=== PATIENT | female | born 1985 | race Caucasian/White ===

== ENCOUNTER → 2020-11-22 | Day surgery (SDC) | payer OTHER ==
[~2020-11-22] VITALS: Ht 160 cm; Wt 56.7 kg
[2020-11-22 09:32] LABS: HCG (URINE) SCREEN NEGATIVE (NEGATIVE)
[2020-11-22 09:56] LABS: BASOPHIL 0.7 % (0-2); EOSINOPHIL 1.1 % (0-5); HCT 40.3 % (37.0-47.0); HGB 13.7 g/dl (12.5-16.0); LYMPHOCYTE 31.2 % (15-48); MCH 28.7 pg (25.0-31.0); MCV 84.5 fL (78.0-100.0); MPV 10.3 fL (6.0-9.5); NEUTROPHIL 59.6 % (41-80); NRBC 0; PLT 236 K/uL (150-400); RBC 4.77 M/uL (4.20-5.40); RDW 12.1 % (11.5-14.0); WBC 7.4 K/uL (4.0-10.5)
== END | disposition home or self-care (01) ==
LOC: FAS 09:04
PROVIDERS: Oral & Maxillofacial Surgery
DX: K02.9 Dental caries, unspecified (principal); K04.7 Periapical abscess without sinus; F17.210 Nicotine dependence, cigarettes, uncomplicated
CPT/HCPCS: D7140; D7210; 36415; 84703; 85025; J1100; J1170; J1885; J2250; J2405; J2704; J7120